=== PATIENT | female | born 2000 | race American Indian/Alaskan Native ===

== ENCOUNTER 2022-05-11 14:17 | Emergency (ER) | payer OTHER, SELFPAY ==
[2022-05-11 14:33] VITALS: BP 118/80; PULSE 92; RESP 18; TEMP 36.6; O2SAT 100; BMI 24.9
--- NOTE | 2022-05-11 16:14 | ED_ITS ---
HPI - Back Pain/Injury General Chief Complaint: Back Injury/Pain Stated Complaint: Lower back pain, can't stand Time Seen by Provider: 05/11/22 15:08 History of Present Illness HPI Narrative: This 21-year-old female comes in with rather sudden onset of severe low back pain that occurred prior to arrival when walking up some steps. She states that she has had some mild back pain in the past but nothing like this. She does not report any specific injury event or strenuous activity. She states that she has difficulty walking now because there is some much pain. She does not report any altered sensation otherwise. She has not had any altered bowel or bladder function. Related Data Home Medications Medication Instructions Recorded Confirmed dextroamphetamine-amphetamine ER PO 05/11/22 20 mg 24hr capsule,extend release (Adderall XR) fluoxetine 40 mg capsule mg 05/11/22 Previous Rx's Medication Instructions Recorded hydrocodone 5 mg-acetaminophen 325 1 tab PO Q4-6H PRN pain #10 tabs 05/11/22 mg tablet ketorolac 10 mg tablet 10 mg PO Q8H 5 days #15 tabs 05/11/22 methylprednisolone 4 mg tablets in See Rx Instructions PO .COMPLEX 05/11/22 a dose pack (Medrol (Jim)) #21 ea tizanidine 4 mg capsule (Zanaflex) 4 mg PO TID PRN muscle spasticity 05/11/22 #20 caps Allergies Allergy/AdvReac Type Severity Reaction Status Date / Time No Known Drug Allergies Allergy Verified 05/11/22 14:36 Review of Systems Status of ROS: Reports: 10 or more systems reviewed and unremarkable except as noted in History and below Narrative: Constitutional: No fevers, no weight gain or loss. Eyes: No discharge. No vision changes. HENT: No congestion, no sore throat, no ear pain. Cardiovascular: No chest pain, no palpitations. Respiratory: No shortness of breath, no wheezes, no cough. Gastrointestinal: No abdominal pain, no vomiting, no diarrhea. Genitourinary: No dysuria, no hematuria. Musculoskeletal: Low back pain as described above. Skin: No rashes, no pruritis. Neurological: No dizziness, weakness, sensory change, speech change. Endo/Heme/Allergies: No bruising or bleeding. No polydipsia. Pysch: no suicidality, no anxiety, no insomnia. All other systems reviewed and are negative. Exam Narrative: Exam Narrative: Constitutional: Well-developed, well-nourished, no acute distress. HEENT: Normocephalic, atraumatic. Neck: Normal range of motion. Nontender. Supple. Heart: Intact distal pulses. Lungs: No chest discomfort. No wheezes, rhonchi, or rales. Abdomen: Nontender. Back: Pain localized in the low back region bilaterally. Straight leg raise is positive bilaterally. Extremities: Normal range of motion. No injury. Skin: Intact. No rash. Warm. No erythema or pallor. Neurologic: No altered sensation. No weakness. Alert and oriented. Psychiatric: No suicidality. No anxiety or depression. No insomnia. Nursing notes and vitals signs are reviewed. Const: Vital Signs, click to edit/add: Vital Signs - 24 hr 05/11/22 14:33 Temperature 97.8 F Pulse Rate [Right Pulse Oximeter] 92 Respiratory Rate 18 Blood Pressure [Ri ght Upper Arm] 118/80 Pulse Oximetry 100 Oxygen Delivery Me thod Room Air Course Vital Signs Vital signs: Initial Vital Signs Temperature 97.8 F 05/11/22 14:33 Temperature Source Temporal Artery Scan 05/11/22 14:33 Pulse Rate 92 05/11/22 14:33 Respiratory Rate 18 05/11/22 14:33 Blood Pressure 118/80 05/11/22 14:33 Blood Pressure Mean 92 05/11/22 14:33 Blood Pressure Position Sitting 05/11/22 14:33 Pulse Oximetry 100 05/11/22 14:33 Oxygen Delivery Method 05/11/22 14:33 Vital Signs Temperature 97.8 F 05/11/22 14:33 Pulse Rate 92 05/11/22 14:33 Respiratory Rate 18 05/11/22 14:33 Blood Pressure 118/80 05/11/22 14:33 Pulse Oximetry 100 05/11/22 14:33 Oxygen Delivery Method 05/11/22 14:33 Temperature 97.8 F 05/11/22 14:33 Pulse Rate 92 05/11/22 14:33 Respiratory Rate 18 05/11/22 14:33 Blood Pressure 118/80 05/11/22 14:33 Pulse Oximetry 100 05/11/22 14:33 Oxygen Delivery Method 05/11/22 14:33 MDM - Back Pain/Injury MDM Narrative Medical decision making narrative: This patient comes in with rather severe low back pain that began just prior to arrival. She does not report pain radiating down either leg but does have distinct onset of pain in her low back when passively raising each leg. There are no significant enough mechanisms of injury today that mandate imaging at this time. She may need an MRI if not improving. The patient did receive an intramuscular injection of Toradol 30 mg. Prescriptions are provided for Toradol, [place], Zanaflex, and Medrol Dosepak. I advised her to follow-up with her primary physician or return if worsening. She may need to see a claim specialist if not improving. Discharge Plan Discharge Clinical Impression: Lumbar radiculopathy Patient Disposition: Home, Self-Care Condition: Stable Additional Instructions: Take medication as needed and indicated. Activity as tolerated. Follow up with primary physician or schedule appointment with a spine clinic if not improving. There is a clinic for back pain here at this facility. Appointment can be made by calling [phone]. Prescriptions: New hydrocodone-acetaminophen 5-325 mg tablet 1 tab PO Q4-6H PRN (Reason: pain) Qty: 10 0RF ketorolac 10 mg tablet 10 mg PO Q8H 5 Days Qty: 15 0RF methylprednisolone [Medrol (Jim)] 4 mg tablets,dose pack See Rx Instructions .ROUTE .COMPLEX Qty: 21 0RF Rx Instructions: orally per package directions tizanidine [Zanaflex] 4 mg capsule 4 mg PO TID PRN (Reason: muscle spasticity) Qty: 20 0RF No Action fluoxetine 40 mg capsule dextroamphetamine-amphetamine [Adderall XR] 20 mg capsule,extended release 24hr PO Follow Up/Referrals: Kevin Ghosh MD [Primary Care Provider] - Stand Alone Forms: [employer] Info Instructions
[2022-05-11] MEDS: KETOROLAC 30 MG/ML inj IM (16:52)
== END 2022-05-11 16:55 | disposition home or self-care (01) ==
PROVIDERS: Emergency Provider Emergency Medicine Emergency Medical Services; PCP Family Medicine
DX: M54.16 Radiculopathy, lumbar region (principal)
CPT/HCPCS: 96372; 99283; 99284; J1885